=== PATIENT | female | born 1995 | race Caucasian/White ===

== ENCOUNTER 2021-11-30 10:44 | Outpatient (CLI) | payer OTHER ==
[~2021-11-30] VITALS: Ht 157.5 cm; Wt 63.7 kg
--- NOTE | 2021-11-30 11:00 | NUR ---
1100 PT AMBULATORY TO UNIT. PT CHANGED INTO GOWN AND COMFORTABLE IN BED. TOCO TRACING AT THIS TIME. NO CTX NOTED. PT REPORTS CRAMPING AND LEAKING OF FLUID. DOPPLER PERFORMED AT THIS TIME, HR 150'S. SVE COMPLETED, CERVIX CLOSED, AMNITEST NEGATIVE. WILL CONTINUE TO MONITOR.
--- NOTE | 2021-11-30 12:15 | NUR ---
1215 PT INFORMED ROM+ NEGATIVE, UNDERSTANDS DC PLAN. NO CTX NOTED ON TOCO.
== END 2021-11-30 12:15 | disposition home or self-care (01) ==
LOC: LDRO 10:44
DX: Z34.92 Encounter for supervision of normal pregnancy, unspecified, second trimester (principal); Z3A.23 23 weeks gestation of pregnancy

== ENCOUNTER 2022-03-20 12:56 | Outpatient (CLI) | payer OTHER ==
[~2022-03-20] VITALS: Ht 157.5 cm; Wt 74.5 kg
[2022-03-20 13:30] VITALS: BP 107/70; PULSE 83; TEMP 97.8
--- NOTE | 2022-03-20 13:30 | NUR ---
1300- Pt arrives on unit ambulatory with complaints of having vaginal mucous with bright red blood in it. Pt denies noticing any other vaginal bleeding since then. 1307- Pt into bed, EFM and TOCO on and tracing well. O2 sat monitor on and tracing maternal HR. VSS. Assessments completed. Pt denies UC or LOF. +FM per Pt. Pt voided while changing into gown and denies any VB on toilet paper. SVE by this RN, , clear/yellow mucous noted with small strings of blood in it.
[2022-03-20 13:43] VITALS: BP 101/65; PULSE 82
--- NOTE | 2022-03-20 14:00 | NUR ---
1343- EFM and TOCO off. Discussed labor precautions and when to return to hospital. Pt denies questions at this time. Pt up to change into street clothes. 1400- Discharge paperwork given and explained. Pt denies questions. Pt ambulates off unit in stable condition.
[2022-03-23] MEDS ORDERED: PRENATAL TABLET PO (03:23)
[2022-03-23] MEDS ORDERED: MOTRIN 800800 MG/TAB PO (23:42)
== END 2022-03-20 14:00 | disposition home or self-care (01) ==
LOC: LDRO 12:56 → LDR 13:06 → LDRO 13:06 → LDR 14:00 → LDRO 14:00
DX: Z34.93 Encounter for supervision of normal pregnancy, unspecified, third trimester (principal); Z3A.38 38 weeks gestation of pregnancy